=== PATIENT | female | born 1945 | race Caucasian/White ===

== ENCOUNTER 2016-10-07 09:09 | Outpatient (RCR) | payer MEDICARE, OTHER | END 2017-01-05 | disposition home or self-care (01) | LOC: ONC 09:09 | PROVIDERS: ATTEND Internal Medicine Hematology & Oncology | DX: C50.412 Malignant neoplasm of upper-outer quadrant of left female breast (principal); Z17.0 Estrogen receptor positive status [ER+]; Z86.000 Personal history of in-situ neoplasm of breast; M19.90 Unspecified osteoarthritis, unspecified site; Z92.3 Personal history of irradiation; Z09 Encounter for follow-up examination after completed treatment for conditions other than malignant neoplasm | CPT/HCPCS: 99213 ==

== ENCOUNTER → 2016-11-29 | Outpatient (CLI) | payer MEDICARE, OTHER ==
--- OUTSIDE RECORDS SUMMARY | 2016-11-29 10:59 | XMS REPORT | Continuity of Care Document ---
Author Author [facility] Organization [facility] Address Unknown Phone Unavailable Care Team Providers Care Casting Assistant Name Role Phone Adebayo Jacobo PCP [phone] Source Comments Some departments are not documenting in the electronic medical record. If you do not see the information that you expected, contact Release of Information in the Health Information Management department at [phone] for further assistance in locating additional records.[facility] Active Allergies and Adverse Reactions Allergen Noted Date Severity Reactions Comments Oxycodone 10/14/2016 Medium RASH, SEE COMMENTS skin peeling Penicillins 10/14/2016 Medium RASH Current Medications Prescription Sig. Disp. Refills Start End Date Status Date simvastatin (ZOCOR) 20 mg Take 20 mg by mouth at Active tablet bedtime daily. meloxicam (MOBIC) 15 mg Take 15 mg by mouth Active tablet daily. lisinopril (PRINIVIL; Take 5 mg by mouth daily. Active ZESTRIL) 5 mg tablet hydroCHLOROthiazide Take 25 mg by mouth every Active (HYDRODIURIL) 25 mg morning. tablet zolpidem (AMBIEN) 10 mg Take 10 mg by mouth as Active tablet Needed for Sleep. pantoprazole DR Take 40 mg by mouth daily Active (PROTONIX) 40 mg tablet as needed. 3-4 tablets per week melatonin 10 mg tab Take 10 mg by mouth at Active bedtime daily. diphenhydrAMINE (BENADRYL Take 25 mg by mouth at Active ALLERGY) 25 mg tablet bedtime as needed. acetaminophen (TYLENOL) Take 325 mg by mouth Active 325 mg tablet twice daily as needed. senna/docusate Take 1 Tab by mouth twice 40 Tab 0 10/28/19 Active (SENOKOT-S) 8.6/50 mg daily. 17 tablet acetaminophen/codeine Take 1-2 Tabs by mouth 40 Tab 0 10/28/19 Active (TYLENOL #3) 300/30 mg every 4 hours as needed 17 tablet for Pain. Max of 4,000 mg of acetaminophen in 24 hours. morphine SR (MS CONTIN; Take 1 Tab by mouth every 40 Tab 0 10/28/19 Active ORAMORPH SR) 15 mg tablet 12 hours 17 Active Problems Problem Noted Date Malignant neoplasm of central portion of left female breast (HCC) 10/13/2016 Overview: DIAGNOSIS: 1. 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 Garrido is a female who presented to the [facility] on 10/14/2016 at age 71 for evaluation of newly diagnosed breast cancer. Ms. Garrido had no breast concerns prior to screening mammogram. Ultrasound guided biopsy on 09/28/16 ([facility]) revealed grade 2 IDC. Ms. 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 Ms. Garrido was on NSABP-35 clinical trial for 5 years, using either tamoxifen or letrezole. Ms. Garrido underwent left total mastectomy/SLNB on 10/27/16. PATHOLOGY: Tumor: No residual tumor Margins Free From Tumor: Yes Lymph Nodes: 0/1 LVSI: no Extranodal extension: no BREAST IMAGING: Mammogram: -- Bilateral screening mammogram 09/05/16 ([facility]) revealed a vague density in left breast measuring 6 mm located posterior nipple line posterior to lumpectomy bed. This was located 5 cm from nipple. A subtle mass located right breast posterior nipple line measuring approximately 4 mm located 3.5 cm behind the nipple. -- Bilateral diagnostic mammogram 09/13/16 ([facility]) revealed on the left, the developing asymmetry seen posterior to the lumpectomy site persisted. The skin, nipples, and axilla were grossly unremarkable on the right. There was no new or enlarging breast mass on the right. There were no suspicious pleomorphic microcalcifications on the right. Ultrasound: -- Bilateral breast ultrasound 09/13/16 ([facility]) revealed an angular, hypoechoic, partial shadowing, srllrb-gser-nerc lesion measuring approximately 0.6 x 0.3 x 0.3 cm overall. This was seen at approximately the 3:00 position of the left breast, located 1 cm from the nipple. A few ultrasound scans of the left axilla were obtained, which were grossly unremarkable. (BI-RADS 4). Ultrasound scans of the right breast from the 2:00 - 10:00 positions were obtained which demonstrate unremarkable breast parenchyma, without evidence for focal soft tissue mass or abnormal fluid collection. Limited scans of the right axilla were unremarkable. -- Targeted left breast ultrasound 10/14/16 () revealed the recent biopsy site was labeled as 3:00, 1 cm from the nipple and at 3:00, 5 cm from the nipple by the outside facility. The findings described below were best seen in the left breast at 4:30, 2 cm from the nipple. The difference in clock position was due to this finding being within the central to central posterior left breast which wasvisible by ultrasound at different positions. At 4:30, 2 cm from the nipple, anterior to middle depth, there was architectural distortion which likely represents prior lumpectomy site. The recent biopsy site was difficult to visualize, however, when comparing with outside breast biopsy images, there was a 5 mm irregular hypoechoic mass at 4:30, 2 cm from the nipple, middle to posterior depth, which corresponded in size and location to the biopsy-proven invasive ductal carcinoma. Two morphologically normal left axillary lymph nodes were seen. No suspicious lymph nodes were seen in the left axilla. REPRODUCTIVE HEALTH: Age at first Menarche: Unsure Age at First Live : 26 Age at Menopause: Mid 50's. No HRT : 2 Para: 2 : No PROCEDURE: 1. Left WL excisional biopsy, 05/2005 2. Left total mastectomy/SLNB, 10/27/16 PERTINENT PMH: IBS, HLD, chronic back pain FAMILY HISTORY: No family history of breast or ovarian cancer PHYSICAL EXAM on PRESENTATION: Right - No palpable breast masses. No skin, nipple, or areolar change. Left - Well healed lumpectomy scar at 5:00, slight concavity with pulling of the inferior breast, biopsy changes at 4:30, no distinctly palpable masses. No supraclavicular or axillary adenopathy. MEDICAL ONCOLOGY: Dr. Alonso West REFERRED BY: Dr. Alonso West Most Recent Encounters Date Type Specialty Providers Description 11/24/2016 Telephone Oncology Bridger Sheriff DO Surgical Followup - seroma 11/10/2016 Documentation Oncology Bridger Sheriff DO 11/07/2016 Office Visit Breast Clinic / Breast Bridger Sheriff DO Malignant neoplasm of Center central portion of left female breast (HCC) (Primary Dx) 11/07/2016 Nurse Only Breast Clinic / Breast Bridger Sheriff DO Center Abbey Taylor RN 10/27/2016 Hospital Radiology Bridger Sheriff DO Encounter 10/27/2016 Hospital Bridger Sheriff DO Malignant neoplasm of - Encounter left breast (HCC) 10/28/2016 10/27/2016 Anesthesia Adebayo Mancilla MD Event 10/27/2016 Surgery Bridger Sheriff DO LEFT TOTAL MASTECTOMY, SENTINEL LYMPH NODE BIOPSY 10/20/2016 Hospital Bridger Sheriff DO Breast cancer (HCC) Encounter 10/18/2016 Prep for Case Bridger Sheriff DO 10/14/2016 Nurse Only Breast Clinic / Breast Bridger Sheriff DO At risk for lymphedema Center Thornton, Yoana Carmichael RN (Primary Dx) 10/14/2016 Office Visit Breast Clinic / Breast Bridger Sheriff DO Pre- op testing (Primary Center Dx); Preop examination; Malignant neoplasm of left female breast, unspecified site of breast (HCC) 10/14/2016 Hospital Radiology Bridger Sheriff DO Encounter 10/14/2016 Hospital Radiology Bridger Sheriff DO Canceled (Error) Encounter 10/14/2016 Ancillary Oncology Bridger Sheriff DO Malignant neoplasm of Orders left female breast, unspecified site of breast (HCC) (Primary Dx) 10/12/2016 Telephone Oncology Bridger Sheriff DO Navigation Assessment 10/12/2016 Ancillary Radiology Outpatient, Radiologist Diagnosis unknown Orders (Primary Dx) 10/07/2016 Orders Only Oncology Bridger Sheriff DO Malignant neoplasm of left female breast, unspecified site of breast (HCC) (Primary Dx) 09/28/2016 Hospital Radiology Encounter 09/28/2016 Hospital Radiology Encounter 09/13/2016 Hospital Radiology Encounter 09/13/2016 Hospital Radiology Encounter 09/05/2016 Hospital Radiology Encounter Social History Tobacco Use Types Packs/Day Years Used Date Never Smoker Smokeless Tobacco: Never Used Alcohol Use Drinks/Week oz/Week Comments No Last Filed Vital Signs Vital Sign Reading Time Taken Blood Pressure 136/83 11/07/2016 8:24 AM BLOW TORCH OPERATOR Pulse 79 11/07/2016 8:24 AM BLOW TORCH OPERATOR Temperature 36.5 C (97.7 F) 11/07/2016 8:24 AM BLOW TORCH OPERATOR Respiratory Rate 16 11/07/2016 8:24 AM BLOW TORCH OPERATOR Height 1.549 m (5' 1") 11/07/2016 8:24 AM BLOW TORCH OPERATOR Weight 76.7 kg (169 lb 1.5 oz) 11/07/2016 8:24 AM BLOW TORCH OPERATOR Body Mass Index 31.97 11/07/2016 8:24 AM BLOW TORCH OPERATOR Oxygen Saturation 99% 11/07/2016 8:24 AM BLOW TORCH OPERATOR Plan of Care Date Type Specialty Providers Description 05/15/2017 Appointment Breast Clinic / Breast Bridger Sheriff DO Center [address] [place] [address] [phone] (Fax) 05/15/2017 Appointment Breast Clinic / Breast Abbye Taylor RN Center Health Maintenance Due Date Last Done Comments Hepatitis C Screening 1945 Physical (Comprehensive) 1954 Exam Pertussis Vaccine 1958 Tetanus Vaccine 1964 Breast Cancer Screening 1987 Colorectal Cancer 1997 Screening Shingles Vaccine 2007 Osteoporosis Screening 2012 Prevnar/Pneumovax (#1) 2012 Influenza Vaccine 06/02/2016 Procedures from Last 3 Months Procedure Name Priority Date/Time Associated Diagnosis Comments ECG-SCAN 10/31/2016 Results for this 1:06 PM BLOW TORCH OPERATOR procedure are in the results section. LEFT TOTAL MASTECTOMY, 10/27/2016 Malignant neoplasm of SENTINEL LYMPH NODE 7:30 AM BLOW TORCH OPERATOR left breast (HCC) BIOPSY Results from Last 3 Months PATHOLOGY INTEROPERATIVE REPORT SCAN (11/09/2016 11:10 AM) Narrative Ordered by an unspecified provider. ECG-SCAN (10/31/2016 1:06 PM) Narrative Ordered by an unspecified provider. PATHOLOGY REPORTS FROM OUTSIDE SCAN (10/31/2016 10:57 AM) Narrative Ordered by an unspecified provider. BREAST SPEC PATH ONLY/NO RAD READ (10/27/2016 9:00 AM) Narrative This order has been auto finalized and does not contain a result. SURGICAL PATHOLOGY (10/27/2016 7:53 AM) Component Value Range PATHOLOGY REPORT [facility] [email or web address] Copilot Pilar Baker MD, PhD, Director of Anatomic Pathology Department of Pathology and Laboratory Medicine [address] [place] [phone] Surgical Pathology Office: [phone] SURGICAL PATHOLOGY REPORT NAME: CAROL GARRIDO SURG PATH #: [id number] MR #: [id number] SPECIMEN CLASS: SR BILLING #: [id number] ALT ID #: LOCATION: [facility] DATE OF PROCEDURE: 10/27/2016 AGE: 71 SEX: F DATE RECEIVED: 10/27/2016 : 1945 TIME RECEIVED: 07:53 PHYSICIAN: BRIDGER SHERIFF DO DATE OF REPORT: 11/02/2016 COPY TO: DATE OF PRINTIN11/02/2016 ################################################## ###################### Final Diagnosis: A. Lymph node (1), "left axillary sentinel lymph node #1", excision: There is no evidence of malignancy in one lymph node. (0/1) Deeper sections and a pancytokeratin immunostain are negative in support of the above diagnosis. B. Breast, "left", mastectomy: Previous biopsy site changes. There is no evidence of malignancy. (See comment) C. Skin, "left axillary dog ear", excision: No diagnostic abnormalities. Comment: INVASIVE CARCINOMA OF THE BREAST Specimen Type: Mastectomy Laterality: Left Tumor Site: No residual tumor identified Histologic Type: Not applicable Surgical Margins: Not applicable Histologic Grade (Jennifer Histologic Score): Not applicable Ductal Carcinoma In-situ (DCIS): Absent Lobular Carcinoma In-situ (LCIS): Absent Lymph-Vascular Invasion: Not applicable Nipple Involvement: Not identified Skin Involvement: Not identified Lymph Node Sampling: [place] lymph node(s) only Total number of involved nodes/total nodes found: 0/1 Prognostic markers: Not applicable. Time between tumor removal and placement into formalin < 1 hour: Not applicable Fixation Time between 6-72 hours: Yes Pathologic Staging: pTX (sn)pN0(i-) [please also see prior biopsy [id number]] Primary Tumor (Invasive Carcinoma) (pT) pTX:Primary tumor cannot be assessed Regional Lymph Nodes (pN) (sn): Only sentinel node(s) evaluated. If 6 or more sentinel nodes and/or nonsentinel nodes are removed, this modifier should not be used. pN0 (i-): No regional lymph node metastases histologically, negative IHC Distant Metastasis (M) Not applicable The pathologic stage assigned here should be regarded as provisional, as it reflects only current pathologic data and does not incorporate full knowledge of the patient's clinical status and/or prior pathology. Attestation: By this signature, I attest that I have personally formulated the final interpretation expressed in this report and that the above diagnosis is based upon my examination of the slides and/or other material indicated in this report. +++Electronically Signed Out By+++ ksw/10/27/2016 Interpreted by: Andrea Gaines MD, Attending Physician ELISSA Ruggiero Fellow 11/02/2016 ################################################## ###################### Material Received: A: left axillary sentinel lymph node #1 B: left breast mastectomy short stitch superior, long stitch lateral C: left axillary dog ear, clips robbie the true margin History: 71-year-old female with a history of malignant neoplasm of left breast. Gross Description: A. Received fresh labeled patient's name and "left axillary sentinel lymph node #1" is a 1.0 x 1.0 x 0.9 cm magaña-pink, ovoid possible lymph node. The specimen is bisected and entirely submitted for frozen section consultation with the remaining being placed in cassette [id number]. (sld) B. Fixative: Fresh Labeled: "Left breast total mastectomy, short stitch superior, long stitch lateral" Specimen received: Simple mastectomy Weight: 983 grams Breast measurement: 24.5 x 22.3 x 8.6 Skin appearance and size: [place]-white, ellipse 20.3 x 8.0 cm Skin induration/retraction: No Nipple: 1.5 x 1.1 x 0.3 cm Central everted Lesion: no mass is grossly identified. The cavity with the clip measures 0.6 x 0.3 x 0.3 cm. 9.0 cm from the lateral margin 6.5 cm from the medial margin 17.0 cm from the superior margin 4.5 cm from the inferior margin 5.5 cm from the anterior 2.3 cm from the deep margin Lesion quadrant: Between upper outer quadrant lower outer quadrant Lesion location 3:00 Metallic clip identified: Yes, ribbon clip Uninvolved breast parenchyma: Yellow-magaña, lobulated The deep resection margin is inked black Axillary dissection attached: No Political Consultant sections of the specimen are submitted as follows: B1 Political Consultant sections of the upper outer quadrant. B2 Political Consultant sections of the lower outer quadrant. B3 Political Consultant sections of the lower inner quadrant. B4 Political Consultant sections of the upper inner quadrant. B5 Political Consultant section of skin closest to the lesion. B6-B7 The entire nipple, serially sectioned. B8-B10 The entire mass (B8 deep margin). B11 Political Consultant section of adjacent lateral slice to mass. B12 Political Consultant section of adjacent medial slice to mass. The breast is removed from the patient at 1004, placed in formalin at 1040 and not removed from formalin until 2014 on 10/27/2016. (d) C. Received fresh labeled patient's name and "left axillary dog ear clips marking true margin, 28 cm x 10 cm" is a 28.0 x 12.0 x 3.0 cm magaña-white, V-shaped portion of skin. The clips part the true margin designated by the surgeon. The specimen is inked as follows: Superior - blue Inferior - green Deep - black Opposing the true margin - orange Political Consultant sections of the specimen are submitted in cassettes C1-C3. (d) 10/27/2016 Intraoperative Consultation: A1FS, lymph node, "left axillary sentinel lymph node #1", excision: Negative for malignancy. Frozen section performed at the [facility], [address] [place] [address]. Andrea Gaines MD, Attending Physician If immunohistochemical stains and/or in situ hybridization are cited in this report, the performance characteristics were determined by the Department of Pathology and Laboratory Medicine of the [facility] ([employer]) in compliance with CLIA'88 regulations. Some of these tests rely on the use of "analyte specific reagents" and are subject to specific labeling requirements by the FDA. Known positive and negative control tissues demonstrate appropriate staining. This testing was developed by the Department of Pathology and Laboratory Medicine of the [facility]. It has not been cleared or approved by the FDA. The FDA has determined that such clearance or approval is not necessary. MAMMO LYMPH NODE INJ RADIOTRACER LT (10/27/2016 6:50 AM) Narrative [id number] MAMMO LYMPH NODE INJ RADIOTRACER LT: LEFT BREAST - OCTOBER 27, 2016 - A total of 0.5 mCi of technetium 99m sulfur colloid was provided to the operating room for intraoperative injection andsentinel lymph node localization. Electronically signed and approved by: Robbie Castelan M.D. [id number] Procedure Note Interface, Radiant Results - MonOct 28, 2016 8:11 AM BLOW TORCH OPERATOR [id number] MAMMO LYMPH NODE INJ RADIOTRACER LT: LEFT BREAST - OCTOBER 27, 2016 - A total of 0.5 mCi of technetium 99m sulfur colloid was provided to the operating room for intraoperative injection and sentinel lymph node localization. Electronically signed and approved by: Robbie Castelan M.D. [id number] OUTSIDE PATHOLOGY CONSULT (10/20/2016 2:34 PM) Component Value Range PATHOLOGY REPORT [facility] [email or web address] Pilar Baker MD, PhD, Director of Anatomic Pathology Department of Pathology and Laboratory Medicine [address] [place] [phone] Surgical Pathology Office: [phone] PATHOLOGY CONSULTATION NAME: VENTURA GARRIDOALINA Mederos SURG PATH #: [id number] MR #: [id number] ALT ID #: LOCATION: [facility] DATE OF PROCEDURE: 10/20/2016 AGE: 71 SEX: F DATE RECEIVED: 10/20/2016 : 1945 TIME RECEIVED: 14:34 PHYSICIAN: BRIDGER SHERIFF DO DATE OF REPORT: 10/26/2016 COPY TO: DATE OF PRINTIN10/26/2016 ################################################## ###################### Final Diagnosis: A. Outside case [id number] (Date Collected: 09/28/2016) Breast, left, needle biopsies: Invasive ductal carcinoma, histologic grade 2, nuclear grade 2. See comment. Comment: Breast Cancer Checklist Specimen Type: Needle core biopsy. Laterality: Left Tumor Site: Not specified Histologic Type: Invasive carcinoma Size: The entire tumor size is not known. The single greatest linear length is 0.4 cm and invasive tumor involves 3 of 3 cores. Histologic Grade (Jennifer Histologic Score): II/III Tubule Formation: 3 Nuclear Grade: 2 Mitotic Count (40x objective): 1 Total Jennifer Score: 6/9 DCIS: Absent Lymph-Vascular Invasion: Suspicious Microcalcifications: Not identified Tumor Necrosis: Present; extensive Lymph Node Sampling: None submitted Prognostic markers: Performed at outside institution: Estrogen receptor: Positive, strong (95%) Progesterone receptor: Positive, moderate (23%) Her2/Marianne: Negative, 1+ Ki-67: 23% Pathologic Staging: pTX NX MX The pathology stage assigned here should be regarded as provisional, as it reflects only current pathologic data and does not incorporate full knowledge of the patient's clinical status and/or prior pathology. Attestation: By this signature, I attest that I have personally formulated the final interpretation expressed in this report and that the above diagnosis is based upon my examination of the slides and/or other material indicated in this report. +++Electronically Signed Out+++ [facility]/10/20/2016 Interpreted by: Arlet Cohen MD Fellow ################################################## ###################### Material Received: A: Outside Slides x8 [id number], [facility], Department of Pathology, [address] [place] [id number] History: 71-year-old female with a clinical history of breast cancer. Gross Description: A. Received are eight (8) outside slides labeled "[id number]", and a properly identified surgical pathology report from [facility], Department of Pathology, [address] [place] [address], [place] [address]. ; . kati/10/20/2016 Janay Hooker M.D. If immunohistochemical stains and/or in situ hybridization are cited in this report, the performance characteristics were determined by the Department of Pathology and Laboratory Medicine of the [facility] ([employer]) in compliance with CLIA'88 regulations. Some of these tests rely on the use of "analyte specific reagents" and are subject to specific labeling requirements by the FDA. Known positive and negative control tissues demonstrate appropriate staining. This testing was developed by the Department of Pathology and Laboratory Medicine of the [facility]. It has not been cleared or approved by the FDA. The FDA has determined that such clearance or approval is not necessary. US BREAST TARGET LT (10/14/2016 9:16 AM) Impressions ACR BI-RADS Assessments: BIRAD 6-Known biopsy proven malignancy RECOMMENDATION: Treatment plan. Narrative [id number] US BREAST TARGET LT: LEFT BREAST - OCTOBER 14, 2016 - Standard views. Technologist: Rochelle Urban, Vineyard Worker 71-year-old female with history of left breast conservation therapy for reported DCIS in 2004. The patient had recent ultrasound-guided core needle biopsy of a small 0.6 cm mass in the central left breast on 09/28/2016. Biopsy revealed intermediate grade invasive ductal carcinoma. The recent biopsy site was labeled as 3:00, 1 cm from the nipple and at 3:00, 5 cm from the nipple by the outside facility. The findings described below are best seen in the left breast at 4:30, 2 cm from the nipple. The difference in clock position is due to this finding being within the central to central posterior left breast which is visible by ultrasound at different positions. At 4:30, 2 cm from the nipple, anterior to middle depth, there is architectural distortion which likely represents prior lumpectomy site. The recent biopsy site is difficult to visualize, however, when comparing with outside breast biopsy images, there is a 5 mm irregular hypoechoic mass at 4:30, 2 cm from the nipple, middle to posterior depth, which corresponds in size and location to the biopsy-proven invasive ductal carcinoma. Two morphologically normal left axillary lymph nodes are seen. No suspicious lymph nodes are seen in the left axilla. Finalized by Lexis So M.D. on 10/14/2016 9:41 AM. Dictated by Lexis So M.D. on 10/14/2016 9:22 AM. Electronically signed and approved by: Lexis So M.D. [id number] Procedure Note Interface, Radiant Results - MonOct 14, 2016 9:42 AM BLOW TORCH OPERATOR [id number] US BREAST TARGET LT: LEFT BREAST - OCTOBER 14, 2016 - Standard views. Technologist: Rochelle Urban, Vineyard Worker 71-year-old female with history of left breast conservation therapy for reported DCIS in 2004. The patient had recent ultrasound-guided core needle biopsy of a small 0.6 cm mass in the central left breast on 09/28/2016. Biopsy revealed intermediate grade invasive ductal carcinoma. The recent biopsy site was labeled as 3:00, 1 cm from the nipple and at 3:00, 5 cm from the nipple by the outside facility. The findings described below are best seen in the left breast at 4:30, 2 cm from the nipple. The difference in clock position is due to this finding being within the central to central posterior left breast which is visible by ultrasound at different positions. At 4:30, 2 cm from the nipple, anterior to middle depth, there is architectural distortion which likely represents prior lumpectomy site. The recent biopsy site is difficult to visualize, however, when comparing with outside breast biopsy images, there is a 5 mm irregular hypoechoic mass at 4:30, 2 cm from the nipple, middle to posterior depth, which corresponds in size and location to the biopsy-proven invasive ductal carcinoma. Two morphologically normal left axillary lymph nodes are seen. No suspicious lymph nodes are seen in the left axilla. Finalized by Lexis So M.D. on 10/14/2016 9:41 AM. Dictated by Lexis So M.D. on 10/14/2016 9:22 AM. Electronically signed and approved by: Lexis So M.D. [id number] IMPRESSION ACR BI-RADS Assessments: BIRAD 6-Known biopsy proven malignancy RECOMMENDATION: Treatment plan. MAMMO DIAG EXTERNAL IMAGING (09/28/2016 12:15 AM)Only the most recent of 2 results within the time period is included. Narrative This order has been auto finalized and does not contain a result. US BREAST BIOPSY EXTERNAL IMAGING (09/28/2016) Narrative This order has been auto finalized and does not contain a result. US BREAST EXTERNAL IMAGING (09/13/2016 12:15 AM) Narrative This order has been auto finalized and does not contain a result. MAMMO SCREEN EXTERNAL IMAGING (09/05/2016) Narrative This order has been auto finalized and does not contain a result.
== END ==
LOC: FS 10:56
PROVIDERS: ATTEND Internal Medicine Hematology & Oncology
DX: C50.412 Malignant neoplasm of upper-outer quadrant of left female breast (principal); Z17.0 Estrogen receptor positive status [ER+]; M19.90 Unspecified osteoarthritis, unspecified site; Z92.3 Personal history of irradiation
CPT/HCPCS: 99213

== ENCOUNTER → 2017-02-28 | Outpatient (CLI) | payer MEDICARE, OTHER | LOC: FS 11:22 | PROVIDERS: ATTEND Internal Medicine Hematology & Oncology | DX: C50.412 Malignant neoplasm of upper-outer quadrant of left female breast (principal); Z17.0 Estrogen receptor positive status [ER+]; Z92.3 Personal history of irradiation; Z90.12 Acquired absence of left breast and nipple | CPT/HCPCS: 99213 ==

== ENCOUNTER → 2017-05-30 | Outpatient (CLI) | payer MEDICARE, OTHER | LOC: FS 05-29 16:36 | PROVIDERS: ATTEND Internal Medicine Hematology & Oncology | DX: C50.412 Malignant neoplasm of upper-outer quadrant of left female breast (principal); M19.90 Unspecified osteoarthritis, unspecified site; Z17.0 Estrogen receptor positive status [ER+]; Z92.3 Personal history of irradiation; Z90.12 Acquired absence of left breast and nipple | CPT/HCPCS: 99213 ==

== ENCOUNTER 2018-04-11 09:22 | Outpatient (RCR) | payer MEDICARE ==
[2018-04-11 09:50] LABS: BASOPHILS % (AUTO) 1 % (0-10); EOSINOPHILS # (AUTO) 0.2 10^3/uL (0.0-0.3); EOSINOPHILS % (AUTO) 4 % (0-10); HEMATOCRIT 38 % (35-52); HEMOGLOBIN 12.3 G/DL (11.5-16.0); LYMPHOCYTES # (AUTO) 1.8 X 10^3 (1.0-4.0); LYMPHOCYTES % (AUTO) 32 % (12-44); MEAN CORPUSCULAR HEMOGLOBIN 31 PG (25-34); MEAN CORPUSCULAR HGB CONC 33 G/DL (32-36); MEAN CORPUSCULAR VOLUME 93 FL (80-99); MONOCYTES # (AUTO) 0.6 X 10^3 (0.0-1.0); MONOCYTES % (AUTO) 11 % (0-12); NEUTROPHILS # (AUTO) 2.9 X 10^3 (1.8-7.8); NEUTROPHILS % (AUTO) 53 % (42-75); PLATELET COUNT 269 10^3/uL (130-400); RED BLOOD COUNT 4.03 10^6/uL (4.35-5.85); RED CELL DISTRIBUTION WIDTH 13.4 % (10.0-14.5); WHITE BLOOD COUNT 5.5 10^3/uL (4.3-11.0)
[2018-04-11 10:14] LABS: ALANINE AMINOTRANSFERASE 29 U/L (0-55); ALBUMIN 4.3 GM/DL (3.2-4.5); ALKALINE PHOSPHATASE 71 U/L (40-136); BILIRUBIN,TOTAL 0.3 MG/DL (0.1-1.0); BUN/CREATININE RATIO 22; CALCIUM 9.9 MG/DL (8.5-10.1); CARBON DIOXIDE 24 MMOL/L (21-32); CHLORIDE 107 MMOL/L (98-107); CREATININE SERUM 0.79 MG/DL (0.60-1.30); GFR ESTIMATED > 60; GLUCOSE 97 MG/DL (70-105); SODIUM 140 MMOL/L (135-145); TOTAL PROTEIN 7.3 GM/DL (6.4-8.2)
== END 2018-05-01 | disposition home or self-care (01) ==
LOC: ONC 09:22
PROVIDERS: ATTEND Internal Medicine Hematology & Oncology
DX: C50.412 Malignant neoplasm of upper-outer quadrant of left female breast (principal); M19.91 Primary osteoarthritis, unspecified site; Z17.0 Estrogen receptor positive status [ER+]; Z92.3 Personal history of irradiation; Z90.12 Acquired absence of left breast and nipple; Z96.653 Presence of artificial knee joint, bilateral
CPT/HCPCS: 36415; 80053; 85025; 99213

== ENCOUNTER 2019-04-11 09:06 | Outpatient (RCR) | payer MEDICARE ==
[2019-04-11 09:37] LABS: BASOPHILS % (AUTO) 1 % (0-10); EOSINOPHILS # (AUTO) 0.1 10^3/uL (0.0-0.3); EOSINOPHILS % (AUTO) 3 % (0-10); HEMATOCRIT 33 % (35-52); HEMOGLOBIN 10.1 G/DL (11.5-16.0); LYMPHOCYTES # (AUTO) 1.6 X 10^3 (1.0-4.0); LYMPHOCYTES % (AUTO) 34 % (12-44); MEAN CORPUSCULAR HEMOGLOBIN 28 PG (25-34); MEAN CORPUSCULAR HGB CONC 31 G/DL (32-36); MEAN CORPUSCULAR VOLUME 90 FL (80-99); MEAN PLATELET VOLUME 11.9 FL (7.4-10.4); MONOCYTES # (AUTO) 0.6 X 10^3 (0.0-1.0); MONOCYTES % (AUTO) 12 % (0-12); NEUTROPHILS # (AUTO) 2.4 X 10^3 (1.8-7.8); NEUTROPHILS % (AUTO) 51 % (42-75); PLATELET COUNT 275 10^3/uL (130-400); WHITE BLOOD COUNT 4.8 10^3/uL (4.3-11.0)
[2019-04-11 09:57] LABS: ALANINE AMINOTRANSFERASE 18 U/L (0-55); ALBUMIN 4.5 GM/DL (3.2-4.5); ALKALINE PHOSPHATASE 74 U/L (40-136); BILIRUBIN,TOTAL 0.2 MG/DL (0.1-1.0); BUN/CREATININE RATIO 16; CALCIUM 10.1 MG/DL (8.5-10.1); CARBON DIOXIDE 26 MMOL/L (21-32); CHLORIDE 108 MMOL/L (98-107); CREATININE SERUM 0.89 MG/DL (0.60-1.30); GFR ESTIMATED > 60; GLUCOSE 93 MG/DL (70-105); POTASSIUM 5.4 MMOL/L (3.6-5.0); SODIUM 143 MMOL/L (135-145)
[2019-04-11 10:17] LABS: RETICULOCYTE % 1.14 % (0.50-2.40)
== END 2019-07-10 | disposition home or self-care (01) ==
LOC: ONC 09:06
PROVIDERS: ATTEND Internal Medicine Hematology & Oncology
DX: C50.412 Malignant neoplasm of upper-outer quadrant of left female breast (principal); D64.9 Anemia, unspecified; M19.91 Primary osteoarthritis, unspecified site; Z17.0 Estrogen receptor positive status [ER+]; Z92.3 Personal history of irradiation; Z90.12 Acquired absence of left breast and nipple; Z96.653 Presence of artificial knee joint, bilateral
CPT/HCPCS: 36415; 80053; 82607; 82728; 82746; 83540; 85025; 85045; 99213

== ENCOUNTER → 2020-04-09 | Outpatient (CLI) | payer MEDICARE ==
[2020-04-09 09:23] LABS: BASOPHILS % (AUTO) 1 % (0-10); EOSINOPHILS # (AUTO) 0.2 10^3/uL (0.0-0.3); EOSINOPHILS % (AUTO) 4 % (0-10); HEMATOCRIT 41 % (35-52); HEMOGLOBIN 13.4 G/DL (11.5-16.0); LYMPHOCYTES # (AUTO) 1.4 X 10^3 (1.0-4.0); LYMPHOCYTES % (AUTO) 29 % (12-44); MEAN CORPUSCULAR HEMOGLOBIN 31 PG (25-34); MEAN CORPUSCULAR HGB CONC 32 G/DL (32-36); MEAN CORPUSCULAR VOLUME 95 FL (80-99); MEAN PLATELET VOLUME 11.4 FL (7.4-10.4); MONOCYTES # (AUTO) 0.4 X 10^3 (0.0-1.0); MONOCYTES % (AUTO) 9 % (0-12); NEUTROPHILS # (AUTO) 2.7 X 10^3 (1.8-7.8); NEUTROPHILS % (AUTO) 57 % (42-75); PLATELET COUNT 230 10^3/uL (130-400); RED CELL DISTRIBUTION WIDTH 13.1 % (10.0-14.5); WHITE BLOOD COUNT 4.7 10^3/uL (4.3-11.0)
[2020-04-09 10:21] LABS: ALANINE AMINOTRANSFERASE 20 U/L (0-55); ALBUMIN 4.3 GM/DL (3.2-4.5); ALKALINE PHOSPHATASE 70 U/L (40-136); BILIRUBIN,TOTAL 0.3 MG/DL (0.1-1.0); BUN/CREATININE RATIO 20; CALCIUM 9.5 MG/DL (8.5-10.1); CARBON DIOXIDE 22 MMOL/L (21-32); CHLORIDE 106 MMOL/L (98-107); CREATININE SERUM 0.89 MG/DL (0.60-1.30); GFR ESTIMATED > 60; GLUCOSE 92 MG/DL (70-105); POTASSIUM 4.1 MMOL/L (3.6-5.0); SODIUM 140 MMOL/L (135-145); TOTAL PROTEIN 7.6 GM/DL (6.4-8.2)
== END ==
LOC: EDSTATUS 07-11 16:34 → ONC 09:12
PROVIDERS: ATTEND Internal Medicine Hematology & Oncology
DX: D50.9 Iron deficiency anemia, unspecified (principal); M17.0 Bilateral primary osteoarthritis of knee; M41.80 Other forms of scoliosis, site unspecified; Z85.3 Personal history of malignant neoplasm of breast; Z92.3 Personal history of irradiation; Z90.12 Acquired absence of left breast and nipple; Z96.653 Presence of artificial knee joint, bilateral
CPT/HCPCS: 80053; 82728; 85025; G0463; 99213

== ENCOUNTER → 2021-04-13 | Outpatient (CLI) | payer MEDICARE ==
[2021-04-13 10:35] LABS: BASOPHILS # (AUTO) 0.1 10^3/uL (0.0-0.1); BASOPHILS % (AUTO) 1 % (0-10); EOSINOPHILS # (AUTO) 0.2 10^3/uL (0.0-0.3); EOSINOPHILS % (AUTO) 4 % (0-10); HEMATOCRIT 40 % (35-52); HEMOGLOBIN 13.2 g/dL (11.5-16.0); LYMPHOCYTES # (AUTO) 1.7 X 10^3 (1.0-4.0); LYMPHOCYTES % (AUTO) 26 % (12-44); MEAN CORPUSCULAR HEMOGLOBIN 31 pg (25-34); MEAN CORPUSCULAR HGB CONC 33 g/dL (32-36); MEAN CORPUSCULAR VOLUME 94 fL (80-99); MEAN PLATELET VOLUME 10.9 fL (9.0-12.2); MONOCYTES # (AUTO) 0.7 X 10^3 (0.0-1.0); MONOCYTES % (AUTO) 10 % (0-12); NEUTROPHILS % (AUTO) 60 % (42-75); PLATELET COUNT 266 10^3/uL (130-400); WHITE BLOOD COUNT 6.7 10^3/uL (4.3-11.0)
[2021-04-13 11:12] LABS: ALANINE AMINOTRANSFERASE 26 U/L (0-55); ALBUMIN 4.5 GM/DL (3.2-4.5); ALKALINE PHOSPHATASE 77 U/L (40-136); BILIRUBIN,TOTAL 0.4 MG/DL (0.1-1.0); BUN/CREATININE RATIO 19; CALCIUM 9.7 MG/DL (8.5-10.1); CARBON DIOXIDE 26 MMOL/L (21-32); CHLORIDE 104 MMOL/L (98-107); CREATININE SERUM 0.84 MG/DL (0.60-1.30); GFR ESTIMATED > 60; GLUCOSE 99 MG/DL (70-105); POTASSIUM 4.3 MMOL/L (3.6-5.0); SODIUM 140 MMOL/L (135-145); TOTAL PROTEIN 7.9 GM/DL (6.4-8.2)
== END ==
LOC: ONC 10:26
PROVIDERS: ATTEND Internal Medicine Hematology & Oncology
DX: C50.912 Malignant neoplasm of unspecified site of left female breast (principal); Z90.12 Acquired absence of left breast and nipple; Z92.3 Personal history of irradiation; Z96.653 Presence of artificial knee joint, bilateral
CPT/HCPCS: 80053; 85025; G0463; 99213